=== PATIENT | female | born 1990 | race Caucasian/White ===

== ENCOUNTER 2018-01-06 15:52 | Emergency (ER) | payer BC ==
[2018-01-06 16:24] LABS: Bilirubin Negative (Negative); Blood, Urine Negative (Negative); Clarity CLEAR (Clear); Glucose, Urine (Dipstick) Negative (Negative); Leukocyte Negative (Negative); Nitrite Negative (Negative); Protein, Urine (Dipstick) Negative (Neg-Trace); Specific Gravity, Urine 1.003 (1.002-1.036); Urobilinogen 0.2 mg/dL (0.2-1.0)
[2018-01-06 16:38] LABS: #Basophils 0.1 thou/uL (0.0-0.2); #Eosinphils 0.1 thou/uL (0.0-0.7); #Lymphocytes 2.8 thou/uL (1.20-3.40); #Monocytes 0.7 thou/uL (0.11-0.59); #Neutrophils 8.5 thou/uL (1.40-6.50); %Basophils 0.7 % (0.0-1.0); %Eosinophils 1.2 % (0.0-10.0); %Lymphocytes 22.7 % (21.0-51.0); %Monocytes 5.4 % (0.0-10.0); Hemoglobin 12.8 g/dL (12.0-16.0); Mean Corpuscular HGB CONC 33.8 g/dL (32.0-36.0); Mean Corpuscular Hemoglobin 29.7 pg (27.0-31.0); Mean Corpuscular Volume 87.7 fL (78.0-98.0); Mean Platelet Volume 8.5 fL (7.4-10.4); Platelet Count 283 thou/uL (130-400); RBC Distribution Width 11.6 % (11.5-14.5); Red Blood Cell (RBC) Count 4.31 mill/uL (4.20-5.40); White Blood Cell (WBC) Count 12.2 thou/uL (4.8-10.8)
--- NOTE | 2018-01-06 19:53 | ULT ---
ULTRASOUND PELVIC ULTRASOUND TRANSVAGINAL DOPPLER DUPLEX: HISTORY: patient with first trimester vaginal bleeding. TECHNIQUE: Transabdominal transducer used to evaluate intrapelvic contents using the urinary bladder as an acous tic window. Endovaginal transducer used to visualize intrapelvic contents in greater detail. Color fl ow Doppler and Pulsed Doppler spectral waveform analysis of ovaries. FINDINGS: There is an intrauterine gestational sac, containing a pole, with a crown-rump length of 5.1 cm , corresponding to 11W 6D gestational age. heart rate is 168 BPM. There is a thin, hypoechoic stripe around a portion of the gestational sac, which may represent a small amount of subchorionic h emorrhage. Separate from this, there is a 3 x 2 x 2.5 cm, round, heterogeneous echogenicity mass in the myometrium, abutting the gestational sac, which is probably a uterine fibroid. No free fluid in the cul-de-sac. The bilateral ovaries are normal in size, with demonstration of blood flow by Dopple r. A dominant 1 cm cystic structure in the right ovary could be a corpus luteal cyst. IMPRESSION: 1. Live, late first trimester intrauterine gestation, estimated to be 11 weeks 3 days gestational ag e. 2. Thin, hypoechoic stripe around the gestational sac, which is questionable for a small subchorioni c hemorrhage. 3. A 3 cm, round myometrial mass may represent a uterine leiomyoma (fibroid). 4. Followup is recommended. ISMAEL Grajeda POS: HUSAM
[2018-01-07 22:45] LABS: Chlamydia by PCR Not Detected (NotDetected); GC by PCR Not Detected (NotDetected)
== END 2018-01-06 18:53 | disposition home or self-care (01) ==
LOC: ERS 15:52
DX: O20.0 Threatened abortion (principal); Z3A.12 12 weeks gestation of pregnancy
CPT/HCPCS: 76856; 81003; 84702; 85025; 86900; 86901; 87480; 87491; 87510; 87591; 87660; 99284

== ENCOUNTER 2018-06-30 01:51 | Day surgery (SDC) | payer BC | END 2018-06-30 02:55 | disposition home or self-care (01) | LOC: L&D/OP 01:51 | PROVIDERS: ATTEND Obstetrics & Gynecology | DX: O99.89 Other specified diseases and conditions complicating pregnancy, childbirth and the puerperium (principal); N89.8 Other specified noninflammatory disorders of vagina; Z53.21 Procedure and treatment not carried out due to patient leaving prior to being seen by health care provider; Z91.018 Allergy to other foods; Z88.0 Allergy status to penicillin | CPT/HCPCS: 99281 ==

== ENCOUNTER 2018-06-30 13:07 | Inpatient (IN) | payer BC ==
[~2018-06-30 13:07] MED LIST: Bupivacaine/Epinephrine 0.25% 30 ML VIAL ONE
[2018-06-30] MEDS ORDERED: NS / Oxytocin 40 units/1000ml 1,000 ML IV PRN (13:20)
[2018-06-30] MEDS ORDERED: Butorphanol Tartrate 1 MG/ML VIAL SLOW IVP PRN (13:20)
[2018-06-30] MEDS ORDERED: HYDROcodone/Acetaminophen 5/325 mg Tablet PO PRN ×2 (13:20)
[2018-06-30] MEDS ORDERED: Ibuprofen 800 MG TAB PO PRN (13:20)
[2018-06-30] MEDS ORDERED: Ondansetron PF 4 MG/2 ML Vial IVP PRN (13:20)
[2018-06-30] MEDS ORDERED: Promethazine HCl 25 MG/ML VIAL IM PRN (13:20)
[2018-06-30] MEDS ORDERED: Lidocaine 1% (PF) 30 ML VIAL SC PRN (13:20)
[2018-06-30] MEDS ORDERED: Misoprostol 100 MCG TAB VAG SCH (13:30)
[2018-06-30] MEDS ORDERED: NS w/ Oxytocin 10 units 500 ML IV SCH (13:30)
--- NOTE | 2018-06-30 13:32 | PDOC.LDHP ---
Labor and Delivery H&P Chief complaint: loss of fluid HPI: Pt is a 28yo G1 sent from clinic to L and D for PROM @ 36 weeks. Pt gives hx of going to L and D last night and leaving against medical advice to stay for evaluation. Pt reports big gush of fluid at 2100 last night, followed by soaking 2 pads in fluid and intermittent trickle of fluid since then. Pt presented to office for scheduled visit this AM. Bedside US w VTX presentation and 2cm of fluid. Pt was counseled on risk to self and baby of prolonged ROM as well as prematurity. Pt was then instructed to immediately present to L and D, pt presented approx 2 hrs later. Current gestational age (weeks): 36 Due date: 07/24/18 Dating criteria: first trimester ultrasound (7 weeks redates) Grav: 1 Para: 0 Current complications: none Allergies/Adverse Reactions: Allergies Allergy/AdvReac Type Severity Reaction Status Date / Time Penicillins Allergy Unverified 06/30/18 13:24 - Physical Exam Vital signs reviewed and normal: yes General: NAD Heart: RRR Lungs: CTAB Abdomen: gravid Extremeties: no edema - Vaginal Exam cm dilated: 1 Effacement: 0% Station: -3 - OB Labs Blood type: O RH: positive Antibody Screen: negative HIV: negative RPR: negative HEPSAg: negative 1 hour GCT: negative (131) GBS: negative Rubella: immune - Assessment L&D Assessment: premature rupture of membranes (@36.3 weeks) - Plan Plan: admit to L&D, cervical ripening, labor augmentation if indicated, informed consent obtained, anesthesia consult for pain management -: A/P: PPROM @ 36.3 weeks now 36.4 weeks with admit to L and D. Discussed cervical ripening/IOL w cytotec. Steroids for FLM, VTX on office US. Plan of care discussed with [facility].
[2018-06-30 14:41] VITALS: BMI 39.0
[2018-06-30] MEDS: Betamet Acet/Betamet Na Ph 30 MG/5 ML VIAL IM SCH (15:08)
[2018-06-30 15:14] LABS: Hemoglobin 13.3 g/dL (12.0-16.0); Mean Corpuscular Volume 85.3 fL (78.0-98.0); Platelet Count 200 thou/uL (130-400); RBC Distribution Width 14.3 % (11.5-14.5); Red Blood Cell (RBC) Count 4.58 mill/uL (4.20-5.40); White Blood Cell (WBC) Count 10.7 thou/uL (4.8-10.8)
[2018-06-30 15:57] LABS: HBSAg Index 0.23 S/CO (0-0.99); Hep B Surf Ag Non-Reactive S/CO (NonReactive)
[2018-06-30 16:53] LABS: Syphilis Antibody Nonreactive (Nonreactive); Syphilis Antibody Index 0.03 S/CO (<1.00 Non-Reactive)
[2018-06-30] MEDS: Misoprostol 100 MCG TAB PO SCH ×2 (18:58→22:30)
[2018-07-01] MEDS: Misoprostol 100 MCG TAB PO SCH ×2 (01:30→20:06)
--- NOTE | 2018-07-01 03:20 | PDOC.LDPN ---
Labor & Delivery Progress Note - Subjective Subjective: comfortable - Objective Vital signs reviewed and normal: yes General: NAD, resting Uterine fundus: non tender FHT: category 1, early decelerations, variable decelerations (pt with minimal monitoring. pt with decels that have shhoulders without slow return. occ after indicated peak of ctx, but form consistent with early/variable and not late decels. positive access and ltv ) [place] contractions every: 4 Plan: continue plan of care (will place iupc if persist and consider amnioinfusion. continuous monitoring )
[2018-07-01] MEDS: Lactated Ringer's 1,000 ML IV SCH ×3 (07:00→18:22)
--- NOTE | 2018-07-01 07:57 | PRG ---
DATE OF SERVICE: 07/01/2018 TIME OF SERVICE: 0700 hours. Ms. Weller is 28-year-old 1, para 0, with prolonged rupture of membranes, now for approximately 30 hours, who presented on the and left against medical advice, re-presented to [facility] on the afternoon of the and was sent over for admission with rupture of membranes and induction of labor. Of note, the patient has a very extensive and restrictive plan. Efforts have been made over the past 12 to 15 hours to honor the patient's wishes with less intervening therapeutic modalities such as intermittent monitoring, p.o. Cytotec. The fetus has had a category I tracing with 1 episode of category II. Decels noted around 3:00 a.m., which resolved with repositioning. The patient was checked by myself at 0700 hours and noted to be 1, 60, and -2 station, cephalic with the head well applied to the cervix. Because of lack of change, decision was made to go ahead and place an intrauterine pressure catheter. This has been placed and we will assess over the next 30 minutes and an hour the adequacy of the patient's contractions. I have discussed with the patient the need to increase the acuity of our interventions and that this will likely require the administration of Pitocin via IV. The patient and her mother, who is very involved in the care process, seem to understand the need for an escalation of interventions secondary to failure to progress as well as the lengthening times since rupture of membranes. heart rate tracing currently remains category I with baseline in the 140s to 150s. The patient remains afebrile. We will discuss the patient's current state and turnover plan of care to Dr. Augustin Domingo at [facility] and checked out as well to Dr. Geovanny Vu, who is OB hospitalist coming on at 0800 hours. Job ID: [id number]
--- NOTE | 2018-07-01 08:19 | PDOC.LDPN ---
Labor & Delivery Progress Note - Subjective Subjective: comfortable - Objective Vital signs reviewed and normal: yes General: breathing through contractions Dilation: 1 Effacement: 50% Station: -2 FHT: category 1 - Assessment (1) 36 weeks gestation of Code(s): Z3A.36 - 36 WEEKS GESTATION OF Current Visit: Yes Status : Acute (2) premature rupture of membranes (PPROM) with unknown onset of labor Code(s): O42.919 - PRETRM VERA ROM, UNSP TIME BETW RUPT AND ONST LABR, UNSP TRI Current Visit: Yes Status: Acute Plan: other -: A/P: 36.5 weeks w PPROM @ 36.3 weeks undergoing IOL, sp cytotec yesterday with last dose at approx 0130. Was not repeated overnight due to concern for late decelerations that resolved. FHT cat 1 at this time, IUPC placed by OB this AM. Discussed plan for pitocin as well as indications for CS for maternal or indications. Pt agrees with plan of care.
[2018-07-01] MEDS ORDERED: NS w/ Oxytocin 10 units 500 ML IV SCH (08:30)
--- NOTE | 2018-07-01 12:45 | PDOC.LDPN ---
Labor & Delivery Progress Note - Subjective Subjective: painful contractions - Objective Vital signs reviewed and normal: yes General: breathing through contractions Dilation: 2 Effacement: 90% Station: 0 FHT: category 1 [place] contractions every: 3 - Assessment (1) 36 weeks gestation of Code(s): Z3A.36 - 36 WEEKS GESTATION OF Current Visit: Yes Status : Acute (2) premature rupture of membranes (PPROM) with unknown onset of labor Code(s): O42.919 - PRETRM VERA ROM, UNSP TIME BETW RUPT AND ONST LABR, UNSP TRI Current Visit: Yes Status: Acute Plan: continue plan of care -: A/P: IOL for PPROM @ 36+ weeks, 2nd dose of Celestone due at approx 1400, now with cervical change noted. Discussed continued plan of care.
[2018-07-01] MEDS: Betamet Acet/Betamet Na Ph 30 MG/5 ML VIAL IM SCH (14:26)
[2018-07-01] MEDS ORDERED: Fentanyl 4 mcg/Bup 0.1% Cadd 100 ML ONE (17:04)
[2018-07-01] MEDS ORDERED: Hydrocerin (Eucerin) Cream 120 gm Jar TOP PRN (17:43)
[2018-07-01] MEDS ORDERED: diphenhydrAMINE 50 MG/ML VIAL IVP PRN (17:43)
[2018-07-01] MEDS ORDERED: Naloxone HCl 0.4 mg/ml Vial IVP PRN ×2 (17:43)
[2018-07-01] MEDS ORDERED: ePHEDrine/0.9% NaCl/PF SYRINGE 50 mg/10 ml SLOW IVP PRN (17:43)
[2018-07-01] MEDS ORDERED: Promethazine HCl 25 MG/ML VIAL IM PRN (17:43)
[2018-07-01] MEDS ORDERED: Ondansetron PF 4 MG/2 ML Vial IVP PRN ×2 (17:43→23:21)
[2018-07-01] MEDS ORDERED: Acetaminophen 325 MG TAB PO PRN (17:43)
[2018-07-01] MEDS ORDERED: Lactated Ringer's 500 ML IV PRN (17:43)
[2018-07-01] MEDS ORDERED: Fentanyl 4 mcg/Bupivacaine 0.1% Cassette 100 ML EPIDURAL SCH (17:45)
[2018-07-01] MEDS ORDERED: Communication Order-Pharmacy FS SCH (17:45)
--- NOTE | 2018-07-01 19:42 | PDOC.EVN ---
Event Note - Event Note Event Note: CTSP for deep variables earlier. SVE by me is rim, vtx, +2. UCs q 3-4 mins. Pit off, pt. placed on L side with O2. Amnioinfusion started. FHTs improving Dr. Domingo notified.
[2018-07-01] MEDS ORDERED: Lidocaine 1% (PF) 30 ML VIAL ONE (20:39)
[2018-07-01] MEDS ORDERED: NS / Oxytocin 40 units/1000ml 1,000 ML ONE (20:39)
--- NOTE | 2018-07-01 21:17 | PDOC.LDPN ---
Labor & Delivery Progress Note - Subjective Subjective: comfortable - Objective Vital signs reviewed and normal: yes General: breathing through contractions Dilation: 10 Effacement: 100% Station: 2+ FHT: category 1 [place] contractions every: 5 - Assessment (1) 36 weeks gestation of Code(s): Z3A.36 - 36 WEEKS GESTATION OF Current Visit: Yes Status : Acute (2) premature rupture of membranes (PPROM) with unknown onset of labor Code(s): O42.919 - PRETRM VERA ROM, UNSP TIME BETW RUPT AND ONST LABR, UNSP TRI Current Visit: Yes Status: Acute Plan: continue plan of care -: Pt transitioned to 2nd stage shortly after pitocin DC for late decelerations. FHT reassuring during pushing efforts at this time.
--- NOTE | 2018-07-01 22:07 | PDOC.OPDEL ---
OB Operative/Delivery Note Delivery Dr/Surgeon: Jose L Pre-Delivery Diagnosis: medically indicated induction (36 weeks PPROM) Procedure/Post Delivery Dx: spontaneous vaginal delivery Weeks gestation: 36 - Findings A Sex: female - 1 min: 8 - 5 min: 9 - Additional Findings/Plan Placenta delivered: manual removal (manual removal from SHARON) Repaired Obstetrical Laceration: 2nd degree Estimated blood loss: 350ml Post delivery plan: routine recovery
[2018-07-01] MEDS ORDERED: NS / Oxytocin 40 units/1000ml 1,000 ML IV SCH (23:21)
[2018-07-01] MEDS ORDERED: HYDROcodone/Acetaminophen 5/325 mg Tablet PO PRN (23:21)
[2018-07-01] MEDS ORDERED: Milk Of Magnesia 30 ML UDCUP PO PRN (23:21)
[2018-07-01] MEDS ORDERED: diphenhydrAMINE 25 MG CAP PO PRN (23:21)
[2018-07-01] MEDS ORDERED: Benzocaine/Menthol 20-0.5% 60 ML CAN TOP PRN (23:21)
[2018-07-01] MEDS ORDERED: Bisacodyl 10 MG SUPP PR PRN (23:21)
--- NOTE | 2018-07-01 23:41 | PDOC.EVN ---
Event Note - Event Note Event Note: Temp to 103.0 post delivery. Asked to start ABX by Dr. Domingo. BC x 2 ordered. Gentamicin 80 mg q 8 hrs and Clindamicin 900 q 8 hrs ordered.
[2018-07-02] MEDS: Gentamicin Sulfate 80 MG in Premix Bag 1 BAG IVPB SCH ×4 (00:10→23:50)
[2018-07-02] MEDS: Ibuprofen 800 MG TAB PO SCH ×4 (00:35→20:23)
[2018-07-02] MEDS: Clindamycin/D5W 900 MG in Premix Bag 1 BAG IVPB SCH ×4 (01:12→23:01)
[2018-07-02] MEDS: Misoprostol 100 MCG TAB PO SCH (01:23)
[2018-07-02 06:54] LABS: Hemoglobin 10.9 g/dL (12.0-16.0); Mean Corpuscular HGB CONC 33.9 g/dL (32.0-36.0); Mean Corpuscular Hemoglobin 29.7 pg (27.0-31.0); Mean Corpuscular Volume 87.6 fL (78.0-98.0); Mean Platelet Volume 9.1 fL (7.4-10.4); Platelet Count 153 thou/uL (130-400); RBC Distribution Width 14.4 % (11.5-14.5); Red Blood Cell (RBC) Count 3.68 mill/uL (4.20-5.40); White Blood Cell (WBC) Count 20.6 thou/uL (4.8-10.8)
[2018-07-02] MEDS: Docusate Calcium (SURFAK) 240 MG CAP PO SCH ×2 (07:44→20:23)
[2018-07-02] MEDS: Prenatal Vitamin 1 TAB PO SCH (07:44)
[2018-07-02] MEDS: Ferrous Sulfate 325 MG TAB PO SCH ×2 (07:45→18:11)
[2018-07-02] MEDS ORDERED: Adacel (T-DAP) 0.5 ML SYRINGE IM ONE (09:00)
--- NOTE | 2018-07-02 15:02 | PDOC.PP ---
Post Progress Note Post Day #: 1 Subjective: doing well, moderate cramps noted, minimal lochia, breast feeding, no fever or chills PO intake tolerated: yes Flatus: yes Ambulation: yes Vital Signs (12 hours) Temp Pulse Resp BP BP Pulse Ox 07/02/18 12:11 98.8 F 120 H 20 117/59 L 07/02/18 08:06 98.6 F 113 H 20 103/60 97 07/02/18 07:45 97 07/02/18 05:45 98.5 F 118 H 16 113/57 L Weight Weight 200 lb - Physical Examination General: NAD Respiratory: non-labored breathing Fundus firm & at: below umb Skin: no rash Neurological: no gross focal deficits Psychiatric: A&Ox3, normal affect Result Diagrams: 07/02/18 06:31 Additional Labs: Post Labs Blood Type O POSITIVE 06/30/18 14:54 Hep Bs Antigen Non-Reactive S/CO (NonReactive) 06/30/18 14:54 (1) 36 weeks gestation of Code(s): Z3A.36 - 36 WEEKS GESTATION OF Status: Acute (2) premature rupture of membranes (PPROM) with unknown onset of labor Code(s): O42.919 - PRETRM VERA ROM, UNSP TIME BETW RUPT AND ONST LABR, UNSP TRI Status: Acute (3) Endometritis Code(s): N71.9 - INFLAMMATORY DISEASE OF UTERUS, UNSPECIFIED Status: Acute - Assessment/Plan A/P: 28yo sp @ 36+ weeks after IOL for prolonged PPROM. Immediate PP course with endometritis dx, pt allergic to PNC< started on gent and clindamycin. Tachycardia persists, however pt afebrile at this time. Will continue to watch closely and plan to cont abx for 24hrs post fever.
[2018-07-02] MEDS ORDERED: Sodium Chloride 0.9% 10 ML ONE (16:28)
[2018-07-02] MEDS: HYDROcodone/Acetaminophen 5/325 mg Tablet PO PRN (20:24)
[2018-07-02] MEDS: cefTRIAXone\\ROCEPHIN 1 GM in Sodium Chloride 0.9% 100 ML IVPB SCH (21:43)
[2018-07-03] MEDS: Ibuprofen 800 MG TAB PO SCH ×3 (04:26→19:45)
[2018-07-03] MEDS: Clindamycin/D5W 900 MG in Premix Bag 1 BAG IVPB SCH ×3 (07:57→22:56)
[2018-07-03] MEDS: Docusate Calcium (SURFAK) 240 MG CAP PO SCH ×2 (07:58→19:45)
[2018-07-03] MEDS: Prenatal Vitamin 1 TAB PO SCH (07:58)
[2018-07-03] MEDS ORDERED: Sodium Chloride 0.9% 10 ML ONE ×2 (07:59→15:38)
[2018-07-03] MEDS: Ferrous Sulfate 325 MG TAB PO SCH ×2 (08:26→16:32)
--- NOTE | 2018-07-03 08:40 | PDOC.PP ---
Post Progress Note Post Day #: 2 PO intake tolerated: yes Flatus: yes Ambulation: yes Vital Signs (12 hours) Temp Pulse Resp BP BP Pulse Ox 07/03/18 08:29 98.2 F 115 H 22 H 121/69 98 07/03/18 04:30 100.4 F H 121 H 18 119/71 07/02/18 23:00 98.9 F 135 H 16 120/58 L 07/02/18 21:16 98.9 F 135 H 18 120/58 L 100 Weight Weight 200 lb - Physical Examination General: NAD Cardiovascular: RRR Deviation from normal: mild tachycardia Respiratory: clear to auscultation bilaterally, non-labored breathing Abdominal: + bowel sounds, no distention, appropriately TTP Fundus firm & at: umb-2 Extremities: negative homans (B) Neurological: no gross focal deficits Psychiatric: normal affect Result Diagrams: 07/02/18 06:31 Additional Labs: Post Labs Blood Type O POSITIVE 06/30/18 14:54 Hep Bs Antigen Non-Reactive S/CO (NonReactive) 06/30/18 14:54 - Assessment/Plan PPD2 s/p PTSVD 2/2 PPROM at 36w c/b Endometritis Tmax 100.4 last night with associated tachycardia Bcx growing out Ecoli,sens pending, Rocephin added to Gent/Clinda yesterday, has received 1 dose. Clinically stable, no fundal tenderness on exam. Cont abx x 24h afebrile , baby in room. Lochia < menses, voiding, ambulating, pain controlled Rh pos RImm Cont care.
[2018-07-03] MEDS: Gentamicin Sulfate 80 MG in Premix Bag 1 BAG IVPB SCH ×2 (09:21→16:11)
[2018-07-03] MEDS: HYDROcodone/Acetaminophen 5/325 mg Tablet PO PRN (19:46)
[2018-07-03] MEDS: cefTRIAXone\\ROCEPHIN 1 GM in Sodium Chloride 0.9% 100 ML IVPB SCH (21:42)
[2018-07-04] MEDS: Gentamicin Sulfate 80 MG in Premix Bag 1 BAG IVPB SCH (00:13)
[2018-07-04] MEDS: HYDROcodone/Acetaminophen 5/325 mg Tablet PO PRN (01:24)
[2018-07-04] MEDS: Ibuprofen 800 MG TAB PO SCH ×3 (04:40→22:20)
--- NOTE | 2018-07-04 09:02 | PDOC.PP ---
Post Progress Note Post Day #: 3 Subjective: Pt denies fever, had chills x 2 yesterday around noon, breast feeding well, baby doing phototherapy. Min lochia. PO intake tolerated: yes Flatus: yes Ambulation: yes Vital Signs (12 hours) Temp Pulse Resp BP 07/04/18 08:12 97.7 F 93 20 117/63 07/04/18 04:44 97.7 F 108 H 07/03/18 23:00 107 H 07/03/18 22:48 98.3 F Weight Weight 200 lb - Physical Examination General: NAD Respiratory: non-labored breathing Abdominal: no distention Skin: no rash Neurological: no gross focal deficits Psychiatric: A&Ox3, normal affect Result Diagrams: 07/02/18 06:31 Additional Labs: Post Labs Blood Type O POSITIVE 06/30/18 14:54 Hep Bs Antigen Non-Reactive S/CO (NonReactive) 06/30/18 14:54 (1) 36 weeks gestation of Code(s): Z3A.36 - 36 WEEKS GESTATION OF Status: Acute (2) premature rupture of membranes (PPROM) with unknown onset of labor Code(s): O42.919 - PRETRM VERA ROM, UNSP TIME BETW RUPT AND ONST LABR, UNSP TRI Status: Acute (3) Endometritis Code(s): N71.9 - INFLAMMATORY DISEASE OF UTERUS, UNSPECIFIED Status: Acute - Assessment/Plan HD3 w after IOL for prolonged ROM @ 36 weeks, complicated PP by endometritis , blood cx + for E.Coli that is sensitive to Rocephin (has had 2 doses) but resistant to Gent. DC gent and clinda reviewed, will plan for one more dose of Rocephin this evening with pt just over 24rs afebrile. AM vitals no longer tachycardic. Discussed plan of care with patient, for one more dose of IV abx, watch through tomorrow off abx and possible DC tomorrow.
[2018-07-04] MEDS: Ferrous Sulfate 325 MG TAB PO SCH ×2 (09:42→17:07)
[2018-07-04] MEDS: Docusate Calcium (SURFAK) 240 MG CAP PO SCH ×2 (09:43→22:21)
[2018-07-04] MEDS: Prenatal Vitamin 1 TAB PO SCH (09:43)
[2018-07-04] MEDS: cefTRIAXone\\ROCEPHIN 1 GM in Sodium Chloride 0.9% 100 ML IVPB SCH (22:20)
[2018-07-05] MEDS: Ibuprofen 800 MG TAB PO SCH (07:28)
[2018-07-05] MEDS ORDERED: cefTRIAXone\\ROCEPHIN 1 GM in Sodium Chloride 0.9% 100 ML IVPB SCH (08:00)
[2018-07-05] MEDS ORDERED: Sodium Chloride 0.9% 10 ML ONE (09:34)
[2018-07-05] MEDS: Docusate Calcium (SURFAK) 240 MG CAP PO SCH (09:36)
[2018-07-05] MEDS: Prenatal Vitamin 1 TAB PO SCH (09:36)
[2018-07-05] MEDS: Ferrous Sulfate 325 MG TAB PO SCH (09:36)
--- NOTE | 2018-07-05 09:49 | DIS ---
DATE OF ADMISSION: 06/30/2018 DATE OF DISCHARGE: 07/05/2018 ADMITTING DIAGNOSES: 1. Premature rupture of membranes at 36 weeks. 2. Induction of labor. DISCHARGE DIAGNOSES: 1. Premature rupture of membranes at 36 weeks. 2. Induction of labor. 3. Endomyometritis. 4. Term spontaneous or delivery. PROCEDURE: spontaneous vaginal delivery. CONSULTATIONS: None. HOSPITAL COURSE: The patient is a 28-year-old, G1, P0, female with an intrauterine at 36 weeks' gestation, who presented to the hospital with gross rupture of membranes and 24 to 48 hours of history of rupture of membranes prior to admission. The patient was induced for labor and ultimately resulted in an uncomplicated spontaneous vaginal delivery. Her course has been complicated by endomyometritis with positive blood cultures for E coli, resistant to gentamicin. Once this was discovered, the patient was placed on Rocephin and has been afebrile now for 48 hours. Today, on day 4, the patient reports that she is tolerating p.o., voiding on her own, having decreased lochia and good pain control. PHYSICAL EXAMINATION: VITAL SIGNS: This morning show blood pressure of 121/69, temperature 98.6, pulse of 101, respiratory rate of 17, and saturating 100% on room air. GENERAL: She appears to be in no acute distress. She is alert and oriented, cooperative and pleasant to interact with. HEENT: Head is normocephalic and atraumatic. Fundus is firm. EXTREMITIES: Nontender, nonedematous. DISCHARGE INSTRUCTIONS: The patient will be discharged home with instructions to follow up with Dr. Domingo in 2 weeks. She also given the positive blood cultures, will be given one more dose of Rocephin this morning and could be given a 7-day course of Keflex 500 mg twice a day given that the E coli sensitive to all cephalosporins and penicillins, and the patient is allergic to penicillin and has tolerated Rocephin well. The patient will have ibuprofen p.r.n. as needed for pain control. Job ID: [id number]
[2018-07-05 15:10] VITALS: BP 122/66; TEMP 97.6
== END 2018-07-05 14:05 | disposition home or self-care (01) | DRG 806 ==
LOC: L&D 13:07 → 3SW 07-02 00:52
PROVIDERS: ADMIT Obstetrics & Gynecology; ATTEND Obstetrics & Gynecology
PROC: 10E0XZZ Delivery of Products of Conception, External Approach (ICD-10-PCS; principal; 2018-07-01)
PROC: 0KQM0ZZ Repair Perineum Muscle, Open Approach (ICD-10-PCS; 2018-07-01)
PROC: 10H07YZ Insertion of Other Device into Products of Conception, Via Natural or Artificial Opening (ICD-10-PCS; 2018-07-01)
PROC: 4A1H7CZ Monitoring of Products of Conception, Cardiac Rate, Via Natural or Artificial Opening (ICD-10-PCS; 2018-07-01)
DX: O42.913 Preterm premature rupture of membranes, unspecified as to length of time between rupture and onset of labor, third trimester (principal); O86.12 Endometritis following delivery; Z37.0 Single live birth; Z3A.36 36 weeks gestation of pregnancy; O70.1 Second degree perineal laceration during delivery; Z88.0 Allergy status to penicillin; B96.20 Unspecified Escherichia coli [E. coli] as the cause of diseases classified elsewhere
CPT/HCPCS: 36415; 51702; 76815; 85027; 86780; 86850; 86900; 86901; 87040; 87077; 87149; 87186; 87340; 88307; 99281; J0696; J0702; J1580; J2001; J3490; J7050